=== PATIENT | female | born 1975 | race Caucasian/White ===

== ENCOUNTER → 2022-01-15 | Outpatient (CLI) | payer BC | LOC: DX 13:40 | PROVIDERS: ATTEND Internal Medicine | DX: E21.3 Hyperparathyroidism, unspecified (principal) | CPT/HCPCS: 77080 ==

== ENCOUNTER → 2024-11-29 | Outpatient (REF) | payer OTHER | LOC: US 15:45 | PROVIDERS: ATTEND Internal Medicine | DX: E04.2 Nontoxic multinodular goiter (principal) | CPT/HCPCS: 76536 ==